=== PATIENT | female | born 1960 | race Caucasian/White ===

== ENCOUNTER → 2018-02-25 | Outpatient (CLI) | payer OTHER ==
[2014-12-30 09:03] VITALS: BP 116/70
[~2018-02-25] MED LIST: HYDROCHLOROTHIA1 T15 PO
== END ==
LOC: RAD 08:02
DX: R05 Cough (principal)

== ENCOUNTER → 2020-09-23 | Outpatient (CLI) | payer OTHER ==
[2020-09-23 07:57] LABS: ALBUMIN 3.9 g/dL (3.5-5.0); POTASSIUM 4.7 mmol/L (3.5-5.1)
[2020-09-23 07:58] LABS: CALCIUM 9.4 mg/dL (8.3-10.5)
[2020-09-23 08:00] LABS: TOTAL PROTEIN 7.2 g/dL (6.4-8.3)
[2020-09-23 08:01] LABS: TOTAL BILIRUBIN 0.3 mg/dL (0.2-1.2)
[2020-09-23 08:08] LABS: BASO # 0.03 (0.02-0.10); EOS # 0.16 (0.04-0.40); EOS % 2.4 % (1.0-5.0); HEMATOCRIT 41.3 % (37.0-47.0); HEMOGLOBIN 13.6 g/dL (12.5-16.0); MEAN CELL VOLUME 92 fl (78-100); MEAN CORPUSCULAR HEMOGLOBIN 30 pg (27-31); MEAN CORPUSCULAR HGB CONC 33 g/dL (33-37); MEAN PLATELET VOLUME 8.9 fl (7.4-10.4); NEU # 3.48 (1.40-6.50); PLATELET COUNT 193 K/mm3 (130-400); RED BLOOD COUNT 4.49 M/mm3 (4.10-5.30); RED CELL DISTRIBUTION WIDTH 13.2 % (11.5-14.5); WHITE BLOOD COUNT 6.6 K/mm3 (4.8-10.8)
== END ==
LOC: LAB 07:31
PROVIDERS: Internal Medicine
DX: Z00.00 Encounter for general adult medical examination without abnormal findings (principal)

== ENCOUNTER → 2021-06-30 | Outpatient (CLI) | payer OTHER | LOC: LAB 11:34 | DX: R05.1 Acute cough (principal) ==